=== PATIENT | male | born 1995 | race Hispanic/Latino ===

== ENCOUNTER 2020-05-07 10:15 | Emergency (ER) | payer SELFPAY ==
[~2020-05-07] VITALS: Ht 165.1 cm; Wt 68.1 kg
== END 2020-05-07 10:31 | disposition home or self-care (01) ==
LOC: ED 10:15
DX: S99.911A Unspecified injury of right ankle, initial encounter (principal); X50.9XXA Other and unspecified overexertion or strenuous movements or postures, initial encounter